=== PATIENT | female | born 1950 | race African-American/Black ===

== ENCOUNTER 2022-06-20 01:01 | Inpatient (IN) ==
[2022-06-20] MEDS ORDERED: SODIUM CHLORIDE 0.9% 1,000 ML IV STA (01:45)
[2022-06-20] MEDS ORDERED: ACETAMINOPHEN 500 MG TABLET PO STA (01:45)
[2022-06-20 02:08] LABS: Basophils % 0.2 % (0.0-0.8); Eosinophils % 0.1 % (0.00-10.9); Hemoglobin 10.6 GM/DL (12.0-16.0); Immature Granulocytes % 0.6 %; Immature Granulocytes Absolute 0.07 #; Lymphocytes # 0.3 10*3/uL (1.4-4.0); Mean Corpuscular HGB Conc 31.2 GM/DL (32-36); Monocytes # 0.5 10*3/uL (0.11-0.8); Neutrophils % 93.1 % (38.7-73.9); Platelet Count 185 T/CUMM (130-400); Red Blood Count 3.27 MC/CUMM (3.8-5.5); Red Cell Distribution Width 14.1 % (9.3-17.3); White Blood Count 12.27 T/CUMM (4-12)
[2022-06-20 02:26] LABS: PT Patient Result 10.9 SECS (10.1-12.1)
[2022-06-20 02:35] LABS: Lymphocytes 4 % (20-55); Total Cells Counted 100
[2022-06-20 02:36] LABS: Platelet Estimate Decreased
[2022-06-20 02:37] LABS: Alanine Aminotransferase 28 U/L (13-56); Albumin 3.2 G/DL (3.4-5.0); Alkaline Phosphatase 96 U/L (45-117); Aspartate Amino Transferase 35 U/L (0-37); Blood Urea Nitrogen 49 MG/DL (7-18); Carbon Dioxide 29 MMOL/L (21-32); Chloride 97 MMOL/L (98-107); Glucose 112 MG/DL (74-106); Osmolality,Calculated 292.4 MOS/KG (273-304); Potassium 3.5 MMOL/L (3.5-5.1); Sodium 140 MMOL/L (136-145); Total Protein 8.2 G/DL (6.4-8.2)
[2022-06-20] MEDS ORDERED: LEVOFLOXACIN INJ 500 MG/100 ML PREMIX IV ONE (03:21)
[2022-06-20] MEDS ORDERED: ENOXAPARIN 30 MG/0.3 ML SYRINGE SUBCUT STA (03:21)
[2022-06-20] MEDS ORDERED: ENOXAPARIN 100 MG/ML SYRINGE SUBCUT STA (03:23)
[2022-06-20 03:27] LABS: ABG Base Excess 2.8 MMOL/L (-2.5-2.5); ABG HCO3 26.5 MMOL/L (20-26); ABG Oxygen Saturation 74.8 % (95-100); ABG PCO2 46.9 MM HG (35-48); ABG PH 7.389 (7.35-7.45); ABG PO2 45.2 MM HG (80-95); ABG TCO2 25.9 MMOL/L (23-27)
[2022-06-20] MEDS ORDERED: hydrALAZINE 20 MG/1 ML VIAL IV PRN (04:11)
[2022-06-20] MEDS ORDERED: ONDANSETRON 4 MG/2 ML VIAL IV PRN (04:11)
[2022-06-20] MEDS ORDERED: ACETAMINOPHEN 325 MG TABLET PO PRN (04:11)
[2022-06-20] MEDS ORDERED: ASPIRIN 325 MG TABLET PO STA (04:25)
[2022-06-20] MEDS ORDERED: HEPARIN 10,000 UNIT/10 ML VIAL IV PRN (04:45)
[2022-06-20] MEDS ORDERED: NITROGLYCERIN SL 0.4 MG TABLET SL PRN (04:45)
[2022-06-20 05:22] LABS: Risk Ratio 1.81; Thyroid Stimulating Hormone 1.67 uIU/ml (0.358-3.74); VLDL Cholesterol 12.8 MG/DL
[2022-06-20] MEDS: cefTRIAXone 1,000 MG in SODIUM CHLORIDE 0.9% 100 ML IV SCH (05:54)
[2022-06-20] MEDS: DOXYCYCLINE HYCLATE INJ 100 MG in SODIUM CHLORIDE 0.9% 100 ML IV SCH ×2 (06:39→18:47)
[2022-06-20] MEDS: ALBUTEROL/IPRATROPIUM 3 ML NEB RESP TX SCH ×3 (07:09→19:04)
[2022-06-20] MEDS: INSULIN LISPRO 100 UNIT/ML SUBCUT SCH ×4 (07:59→22:23)
[2022-06-20] MEDS ORDERED: SPIRONOLACTONE 25 MG TABLET PO SCH (09:00)
[2022-06-20] MEDS ORDERED: AMIODARONE 200 MG TABLET PO SCH (09:00)
[2022-06-20] MEDS: allopurinoL 100 MG TABLET PO SCH (09:14)
[2022-06-20] MEDS: ROSUVASTATIN 20 MG TABLET PO SCH (09:14)
[2022-06-20] MEDS: POLYETHYLENE GLYCOL POWDER 17 GM PACK PO SCH ×2 (09:14→22:23)
[2022-06-20] MEDS: PANTOPRAZOLE 40 MG TABLET PO SCH (09:14)
[2022-06-20] MEDS: METOPROLOL SUCCINATE XL 50 MG TABLET PO SCH (09:14)
[2022-06-20] MEDS: ASCORBIC ACID 500 MG TABLET PO SCH (09:14)
[2022-06-20] MEDS: MORPHINE 2 MG/1 ML SYRINGE IV PRN (11:28)
[2022-06-20] MEDS ORDERED: ENOXAPARIN 100 MG/ML SYRINGE SUBCUT SCH (11:30)
[2022-06-20] MEDS: NITROGLYCERIN 2% OINT 1 INCH/GM PACK TOP SCH ×2 (15:30→18:47)
[2022-06-20] MEDS: [UNRECOGNIZED DRUG - OTHER] PO SCH (22:23)
[2022-06-20] MEDS: DICLOFENAC 1% GEL 100 GM TUBE TOP SCH (22:23)
[2022-06-20] MEDS: LIPASE PROTEASE AMYLASE PO SCH (22:23)
[2022-06-20] MEDS: NYSTATIN CREAM 15 GM TUBE TOP SCH (22:23)
[2022-06-20] MEDS: LACTULOSE 20 GM/30 ML UDCUP PO SCH (22:23)
[2022-06-21] MEDS: NITROGLYCERIN 2% OINT 1 INCH/GM PACK TOP SCH ×4 (00:07→18:17)
[2022-06-21 04:38] LABS: Basophils # 0.1 10*3/uL (0.0-0.2); Basophils % 0.3 % (0.0-0.8); Eosinophils # 0.1 10*3/uL (0.0-0.87); Eosinophils % 0.6 % (0.00-10.9); Hemoglobin 9.1 GM/DL (12.0-16.0); Immature Granulocytes % 0.8 %; Immature Granulocytes Absolute 0.13 #; Lymphocytes # 0.9 10*3/uL (1.4-4.0); Mean Corpuscular HGB Conc 31.4 GM/DL (32-36); Mean Corpuscular Volume 105.5 FL (87-102); Mean Platelet Volume 10.6 FL (9.6-12.0); Monocytes # 1.2 10*3/uL (0.11-0.8); Monocytes % 6.8 % (1.7-12.7); Neutrophils % 86.5 % (38.7-73.9); Platelet Count 193 T/CUMM (130-400); Red Blood Count 2.75 MC/CUMM (3.8-5.5); Red Cell Distribution Width 14.3 % (9.3-17.3); White Blood Count 17.17 T/CUMM (4-12)
[2022-06-21 04:53] LABS: Calcium 7.2 MG/DL (8.5-10.1); Osmolality,Calculated 294.8 MOS/KG (273-304); Potassium 3.9 MMOL/L (3.5-5.1)
[2022-06-21] MEDS: cefTRIAXone 1,000 MG in SODIUM CHLORIDE 0.9% 100 ML IV SCH (05:00)
[2022-06-21] MEDS: DOXYCYCLINE HYCLATE INJ 100 MG in SODIUM CHLORIDE 0.9% 100 ML IV SCH ×2 (05:17→18:17)
[2022-06-21] MEDS: ALBUTEROL/IPRATROPIUM 3 ML NEB RESP TX SCH ×3 (08:39→19:10)
[2022-06-21] MEDS ORDERED: PREGABALIN 75 MG CAPSULE PO PRN (09:00)
[2022-06-21] MEDS: MORPHINE 2 MG/1 ML SYRINGE IV PRN ×2 (10:16→18:41)
[2022-06-21 10:29] LABS: High Sensitive Troponin I* 6291.1 ng/L (0-54)
[2022-06-21] MEDS: ASCORBIC ACID 500 MG TABLET PO SCH (10:57)
[2022-06-21] MEDS: ROSUVASTATIN 20 MG TABLET PO SCH (10:57)
[2022-06-21] MEDS: MULTIVITAMIN (BEROCCA) TABLET PO SCH (10:57)
[2022-06-21] MEDS: METOPROLOL SUCCINATE XL 50 MG TABLET PO SCH (10:57)
[2022-06-21] MEDS: AMIODARONE 200 MG TABLET PO SCH (10:57)
[2022-06-21] MEDS: PANTOPRAZOLE 40 MG TABLET PO SCH (10:57)
[2022-06-21] MEDS: LORATADINE 10 MG TABLET PO SCH (10:58)
[2022-06-21] MEDS: NYSTATIN CREAM 15 GM TUBE TOP SCH ×2 (10:58→21:51)
[2022-06-21] MEDS: allopurinoL 100 MG TABLET PO SCH (10:58)
[2022-06-21] MEDS: INSULIN LISPRO 100 UNIT/ML SUBCUT SCH ×4 (10:58→21:49)
[2022-06-21] MEDS: ASPIRIN EC 81 MG TABLET PO SCH (10:58)
[2022-06-21] MEDS: POLYETHYLENE GLYCOL POWDER 17 GM PACK PO SCH ×2 (10:59→21:49)
[2022-06-21] MEDS: [UNRECOGNIZED DRUG - OTHER] PO SCH ×3 (11:25→21:42)
[2022-06-21] MEDS: LIPASE PROTEASE AMYLASE PO SCH ×3 (11:25→21:42)
[2022-06-21] MEDS: DICLOFENAC 1% GEL 100 GM TUBE TOP SCH ×4 (11:26→21:00)
[2022-06-21] MEDS: FERRIC CITRATE 210 MG PO SCH ×3 (11:26→18:10)
[2022-06-21] MEDS: IRON PO SCH ×3 (11:26→18:10)
[2022-06-21] MEDS: [UNRECOGNIZED DRUG - MIXTURE] PO SCH (11:27)
[2022-06-21] MEDS ORDERED: LIDOCAINE/PRILOCAINE CREAM 5 GM TUBE TOP ONE (11:51)
[2022-06-21] MEDS ORDERED: MAGNESIUM HYDROXIDE SUSP 30 ML UDCUP PO PRN (12:45)
[2022-06-21] MEDS ORDERED: ALBUTEROL/IPRATROPIUM 3 ML NEB RESP TX PRN (12:49)
[2022-06-21 12:53] LABS: Hepatitis B Core IgM Quant 0.07 Index; Hepatitis B Surface Ag Quant < 0.10 Index; Hepatitis B Surface Ag Result Non-Reactive (NonReactive); Hepatitis C Virus Ab Quant 0.96 Index
[2022-06-21] MEDS: LACTULOSE 20 GM/30 ML UDCUP PO SCH (21:49)
[2022-06-22] MEDS: NITROGLYCERIN 2% OINT 1 INCH/GM PACK TOP SCH ×4 (00:35→19:05)
[2022-06-22] MEDS: ALBUTEROL/IPRATROPIUM 3 ML NEB RESP TX SCH ×5 (01:45→20:04)
[2022-06-22] MEDS ORDERED: LEVOFLOXACIN INJ 500 MG/100 ML PREMIX IV SCH (05:00)
[2022-06-22] MEDS: cefTRIAXone 1,000 MG in SODIUM CHLORIDE 0.9% 100 ML IV SCH (05:23)
[2022-06-22] MEDS: DOXYCYCLINE HYCLATE INJ 100 MG in SODIUM CHLORIDE 0.9% 100 ML IV SCH (06:12)
[2022-06-22 06:54] LABS: Basophils # 0.1 10*3/uL (0.0-0.2); Basophils % 0.3 % (0.0-0.8); Eosinophils # 0.1 10*3/uL (0.0-0.87); Eosinophils % 0.8 % (0.00-10.9); Hematocrit 29.2 VOL% (35.7-47.0); Immature Granulocytes % 0.6 %; Lymphocytes # 1.1 10*3/uL (1.4-4.0); Mean Corpuscular HGB Conc 30.8 GM/DL (32-36); Mean Corpuscular Volume 106.2 FL (87-102); Mean Platelet Volume 9.9 FL (9.6-12.0); Monocytes # 1.6 10*3/uL (0.11-0.8); Monocytes % 10.1 % (1.7-12.7); Neutrophils % 81.2 % (38.7-73.9); Platelet Count 199 T/CUMM (130-400); Red Blood Count 2.75 MC/CUMM (3.8-5.5); Red Cell Distribution Width 14.4 % (9.3-17.3)
[2022-06-22 07:12] LABS: Calcium 7.9 MG/DL (8.5-10.1); Osmolality,Calculated 286.8 MOS/KG (273-304); Potassium 4.2 MMOL/L (3.5-5.1)
[2022-06-22] MEDS ORDERED: ceFAZolin 2,000 MG in SODIUM CHLORIDE 0.9% 100 ML IV ONE (09:00)
[2022-06-22] MEDS: INSULIN LISPRO 100 UNIT/ML SUBCUT SCH ×4 (09:46→21:39)
[2022-06-22] MEDS: AMIODARONE 200 MG TABLET PO SCH (09:55)
[2022-06-22] MEDS: METOPROLOL SUCCINATE XL 50 MG TABLET PO SCH (09:55)
[2022-06-22] MEDS: ASCORBIC ACID 500 MG TABLET PO SCH (09:55)
[2022-06-22] MEDS: allopurinoL 100 MG TABLET PO SCH (09:55)
[2022-06-22] MEDS: MULTIVITAMIN (BEROCCA) TABLET PO SCH (09:55)
[2022-06-22] MEDS: ROSUVASTATIN 20 MG TABLET PO SCH (09:56)
[2022-06-22] MEDS: FERRIC CITRATE 210 MG PO SCH ×3 (09:56→17:36)
[2022-06-22] MEDS: PANTOPRAZOLE 40 MG TABLET PO SCH (09:56)
[2022-06-22] MEDS: IRON PO SCH ×3 (09:56→17:36)
[2022-06-22] MEDS: LORATADINE 10 MG TABLET PO SCH (09:56)
[2022-06-22] MEDS: ASPIRIN EC 81 MG TABLET PO SCH (09:56)
[2022-06-22] MEDS: LIPASE PROTEASE AMYLASE PO SCH ×3 (11:26→21:40)
[2022-06-22] MEDS: [UNRECOGNIZED DRUG - MIXTURE] PO SCH (11:26)
[2022-06-22] MEDS: NYSTATIN CREAM 15 GM TUBE TOP SCH ×2 (11:26→21:41)
[2022-06-22] MEDS: POLYETHYLENE GLYCOL POWDER 17 GM PACK PO SCH ×2 (11:26→21:39)
[2022-06-22] MEDS: DICLOFENAC 1% GEL 100 GM TUBE TOP SCH ×4 (11:26→21:41)
[2022-06-22] MEDS: [UNRECOGNIZED DRUG - OTHER] PO SCH ×3 (11:26→21:40)
[2022-06-22] MEDS: LACTULOSE 20 GM/30 ML UDCUP PO SCH (21:39)
[2022-06-23] MEDS: NITROGLYCERIN 2% OINT 1 INCH/GM PACK TOP SCH ×3 (00:04→14:17)
[2022-06-23] MEDS: ALBUTEROL/IPRATROPIUM 3 ML NEB RESP TX SCH ×4 (00:46→19:08)
[2022-06-23] MEDS ORDERED: LIDOCAINE/PRILOCAINE CREAM 5 GM TUBE TOP PRN (09:00)
[2022-06-23] MEDS ORDERED: PARICALCITOL 1 MCG PO SCH (09:00)
[2022-06-23] MEDS: POLYETHYLENE GLYCOL POWDER 17 GM PACK PO SCH ×2 (09:31→21:47)
[2022-06-23] MEDS: PANTOPRAZOLE 40 MG TABLET PO SCH (09:32)
[2022-06-23] MEDS: LORATADINE 10 MG TABLET PO SCH (09:32)
[2022-06-23] MEDS: ASPIRIN EC 81 MG TABLET PO SCH (09:32)
[2022-06-23] MEDS: MULTIVITAMIN (BEROCCA) TABLET PO SCH (09:32)
[2022-06-23] MEDS: allopurinoL 100 MG TABLET PO SCH (09:32)
[2022-06-23] MEDS: AMIODARONE 200 MG TABLET PO SCH (09:32)
[2022-06-23] MEDS: ASCORBIC ACID 500 MG TABLET PO SCH (09:32)
[2022-06-23] MEDS: ROSUVASTATIN 20 MG TABLET PO SCH (09:32)
[2022-06-23 10:16] LABS: Basophils % 0.3 % (0.0-0.8); Eosinophils # 0.1 10*3/uL (0.0-0.87); Eosinophils % 1.2 % (0.00-10.9); Hematocrit 29.5 VOL% (35.7-47.0); Immature Granulocytes % 0.8 %; Immature Granulocytes Absolute 0.09 #; Lymphocytes % 8.2 % (21.3-54.2); Mean Corpuscular HGB Conc 30.5 GM/DL (32-36); Mean Corpuscular Volume 105.4 FL (87-102); Mean Platelet Volume 9.9 FL (9.6-12.0); Monocytes # 0.8 10*3/uL (0.11-0.8); Monocytes % 6.9 % (1.7-12.7); Neutrophils % 82.6 % (38.7-73.9); Platelet Count 213 T/CUMM (130-400); Red Cell Distribution Width 14.4 % (9.3-17.3); White Blood Count 11.65 T/CUMM (4-12)
[2022-06-23 10:27] LABS: Calcium 8.3 MG/DL (8.5-10.1); Osmolality,Calculated 291.8 MOS/KG (273-304); Potassium 3.8 MMOL/L (3.5-5.1)
[2022-06-23] MEDS: INSULIN LISPRO 100 UNIT/ML SUBCUT SCH ×4 (14:12→21:47)
[2022-06-23] MEDS: [UNRECOGNIZED DRUG - MIXTURE] PO SCH (14:14)
[2022-06-23] MEDS: METOPROLOL SUCCINATE XL 50 MG TABLET PO SCH (14:14)
[2022-06-23] MEDS: FERRIC CITRATE 210 MG PO SCH ×3 (14:15→17:09)
[2022-06-23] MEDS: IRON PO SCH ×3 (14:15→17:09)
[2022-06-23] MEDS: [UNRECOGNIZED DRUG - OTHER] PO SCH ×3 (14:16→21:48)
[2022-06-23] MEDS: LIPASE PROTEASE AMYLASE PO SCH ×3 (14:16→21:48)
[2022-06-23] MEDS: PROMETHAZINE 25 MG TABLET PO PRN (14:16)
[2022-06-23] MEDS: DICLOFENAC 1% GEL 100 GM TUBE TOP SCH ×4 (14:18→21:48)
[2022-06-23] MEDS: NYSTATIN CREAM 15 GM TUBE TOP SCH ×2 (14:18→21:48)
[2022-06-23] MEDS: LACTULOSE 20 GM/30 ML UDCUP PO SCH (21:47)
[2022-06-24] MEDS: ALBUTEROL/IPRATROPIUM 3 ML NEB RESP TX SCH ×3 (00:01→12:28)
[2022-06-24 06:19] LABS: Basophils % 0.4 % (0.0-0.8); Eosinophils # 0.2 10*3/uL (0.0-0.87); Eosinophils % 2.3 % (0.00-10.9); Hematocrit 29.2 VOL% (35.7-47.0); Hemoglobin 9.1 GM/DL (12.0-16.0); Immature Granulocytes % 1.1 %; Immature Granulocytes Absolute 0.11 #; Lymphocytes % 9.6 % (21.3-54.2); Mean Corpuscular HGB Conc 31.2 GM/DL (32-36); Mean Platelet Volume 9.9 FL (9.6-12.0); Monocytes # 1.4 10*3/uL (0.11-0.8); Neutrophils % 73.6 % (38.7-73.9); Platelet Count 201 T/CUMM (130-400); Red Blood Count 2.73 MC/CUMM (3.8-5.5); Red Cell Distribution Width 14.4 % (9.3-17.3); White Blood Count 10.47 T/CUMM (4-12)
[2022-06-24 06:42] LABS: Calcium 8.8 MG/DL (8.5-10.1); Osmolality,Calculated 289.5 MOS/KG (273-304); Potassium 3.9 MMOL/L (3.5-5.1)
[2022-06-24] MEDS: DICLOFENAC 1% GEL 100 GM TUBE TOP SCH ×2 (09:00→13:49)
[2022-06-24] MEDS ORDERED: ISOSORBIDE MONONITRATE 30 MG TABLET PO SCH (09:00)
[2022-06-24] MEDS: ASCORBIC ACID 500 MG TABLET PO SCH (09:15)
[2022-06-24] MEDS: allopurinoL 100 MG TABLET PO SCH (09:15)
[2022-06-24] MEDS: MULTIVITAMIN (BEROCCA) TABLET PO SCH (09:15)
[2022-06-24] MEDS: METOPROLOL SUCCINATE XL 50 MG TABLET PO SCH (09:15)
[2022-06-24] MEDS: ROSUVASTATIN 20 MG TABLET PO SCH (09:17)
[2022-06-24] MEDS: LORATADINE 10 MG TABLET PO SCH (09:18)
[2022-06-24] MEDS: AMIODARONE 200 MG TABLET PO SCH (09:18)
[2022-06-24] MEDS: ASPIRIN EC 81 MG TABLET PO SCH (09:18)
[2022-06-24] MEDS: POLYETHYLENE GLYCOL POWDER 17 GM PACK PO SCH (09:19)
[2022-06-24] MEDS: PANTOPRAZOLE 40 MG TABLET PO SCH (09:19)
[2022-06-24] MEDS: INSULIN LISPRO 100 UNIT/ML SUBCUT SCH ×2 (09:20→11:30)
[2022-06-24] MEDS: NYSTATIN CREAM 15 GM TUBE TOP SCH (09:20)
[2022-06-24] MEDS: PROMETHAZINE 25 MG TABLET PO PRN (09:30)
[2022-06-24] MEDS: FERRIC CITRATE 210 MG PO SCH ×2 (10:56→13:48)
[2022-06-24] MEDS: [UNRECOGNIZED DRUG - MIXTURE] PO SCH (10:56)
[2022-06-24] MEDS: [UNRECOGNIZED DRUG - OTHER] PO SCH ×2 (10:56→16:09)
[2022-06-24] MEDS: IRON PO SCH ×2 (10:56→13:48)
[2022-06-24] MEDS: LIPASE PROTEASE AMYLASE PO SCH ×2 (10:56→16:09)
[2022-06-24 12:10] VITALS: BP 128/60
[2022-06-24] MEDS ORDERED: ceFAZolin 2,000 MG/50 ML DUPLEX IV SCH (17:00)
[2022-06-24] MEDS ORDERED: ZINC OXIDE PASTE 113 GM TUBE TOP SCH (21:00)
== END 2022-06-24 17:25 | disposition home health service (06) | DRG 193 ==
LOC: N.ED 01:01 → N.EDINP 04:12 → N.TELEN 21:42
PROVIDERS: ADMIT Internal Medicine; ATTEND Internal Medicine